=== PATIENT | male | born 1975 | race African-American/Black ===

== ENCOUNTER 2018-01-27 12:14 | Emergency (ER) | payer BC ==
[~2018-01-27] VITALS: Ht 180.3 cm; Wt 127.0 kg
[~2018-01-27 12:14] MED LIST: ALBU8.5H4
[2018-01-27 12:20] VITALS: BP 161/69
== END 2018-01-27 12:41 | disposition home or self-care (01) ==
LOC: ER 12:18
DX: J45.901 Unspecified asthma with (acute) exacerbation (principal); Z60.2 Problems related to living alone; Z98.890 Other specified postprocedural states
CPT/HCPCS: A4606; Z7610

== ENCOUNTER 2018-02-03 15:48 | Emergency (ER) | payer BC ==
[~2018-02-03] VITALS: Ht 177.8 cm; Wt 127.0 kg
[2018-02-03 15:48] VITALS: BP 124/90
== END 2018-02-03 16:05 | disposition home or self-care (01) ==
LOC: ER 15:51
DX: J45.901 Unspecified asthma with (acute) exacerbation (principal); F17.200 Nicotine dependence, unspecified, uncomplicated; F12.10 Cannabis abuse, uncomplicated; Z98.890 Other specified postprocedural states; Z76.0 Encounter for issue of repeat prescription; Z60.2 Problems related to living alone
CPT/HCPCS: 99283; A4606; Z7610

== ENCOUNTER 2018-04-05 10:36 | Emergency (ER) | payer BC ==
[~2018-04-05] VITALS: Ht 177.8 cm; Wt 127.0 kg
[2018-04-05 10:38] VITALS: BP 129/52
[2018-04-05] MEDS ORDERED: LIDOCAINE HCL/PF 1% 30 ML VIAL TP ONE (11:00)
[2018-04-05] MEDS ORDERED: LIDOCAINE HCL/PF 1% 30 ML SDV ONE (11:02)
== END 2018-04-05 11:47 | disposition home or self-care (01) ==
LOC: ER 10:37
DX: S63.275A Dislocation of unspecified interphalangeal joint of left ring finger, initial encounter (principal); Z98.890 Other specified postprocedural states; F17.200 Nicotine dependence, unspecified, uncomplicated; Z60.2 Problems related to living alone; W01.0XXA Fall on same level from slipping, tripping and stumbling without subsequent striking against object, initial encounter; Y93.89 Activity, other specified; Y92.89 Other specified places as the place of occurrence of the external cause; Y99.8 Other external cause status
CPT/HCPCS: 73140-TC; A4606; J3490; Z7610

== ENCOUNTER 2019-12-30 20:57 | Emergency (ER) | payer BC, OTHER ==
[~2019-12-30] VITALS: Ht 180.3 cm; Wt 122.5 kg
--- NOTE | 2019-12-30 21:11 | NUR ---
CALLED TO TRIAGE NO ANSWER, NOT IN WAITING ROOM
--- NOTE | 2019-12-30 21:37 | NUR ---
BIBS. L CHEST PAIN. S/P GERD DX. TROUBLE BRAETHING X 1 WEEK; PT AAOX4, -SOB, -CP, VSS. NAD NOTED. PENDIND ER PROVIDER EKTA
[2019-12-30] MEDS ORDERED: MAG HYDROX/AL HYDROX/SIMETH 30 ML UDC ONE (21:59)
[2019-12-30] MEDS ORDERED: LIDOCAINE VISCOUS 2% UD 15 ML UDC ONE (21:59)
[2019-12-30] MEDS ORDERED: MAG HYDROX/AL HYDROX/SIMETH 30 ML UDC PO ONE (22:00)
[2019-12-30] MEDS ORDERED: LIDOCAINE VISCOUS 2% UD 15 ML UDC MM ONE (22:00)
[2019-12-30] MEDS ORDERED: TAMS-12 GT (22:15)
[2019-12-30] MEDS ORDERED: DONE5TAB34 GT (22:15)
[2019-12-30] MEDS ORDERED: FERR325T23 GT (22:15)
[2019-12-30] MEDS ORDERED: VENL75CA56 GT (22:15)
[2019-12-30] MEDS ORDERED: LEVO500T75 GT (22:15)
[2019-12-30] MEDS ORDERED: FINA5TAB11 GT (22:15)
[2019-12-30] MEDS ORDERED: CARV3.122 GT (22:15)
[2019-12-30] MEDS ORDERED: INSU100V7 SQ (22:15)
[2019-12-30] MEDS ORDERED: APIX2.5T GT (22:15)
[2019-12-30] MEDS ORDERED: ATOR10TA GT (22:15)
[2019-12-30] MEDS ORDERED: SACU1TAB GT (22:15)
[2019-12-30] MEDS ORDERED: CLOP75TA15 GT (22:15)
[2019-12-30] MEDS ORDERED: AMIO200T4 GT (22:15)
[2019-12-30] MEDS ORDERED: FAMO20TA8 GT (22:15)
[2019-12-30] MEDS ORDERED: CALC500T51 GT (22:15)
[2019-12-30] MEDS ORDERED: NYST5ORA GT (22:15)
[2019-12-30] MEDS ORDERED: INSU100V39 SQ (22:15)
[2019-12-30] MEDS ORDERED: DOCU100C36 GT (22:15)
[2019-12-30] MEDS ORDERED: CEPH-570 GT (22:15)
[2019-12-30 22:24] LABS: EOSINOPHILS % (AUTO) 3.2 % (0.0-6.0); HEMATOCRIT 45 % (39-51); HEMOGLOBIN 14.6 g/dL (13.5-17.5); LYMPHOCYTES # (AUTO) 1.7 /CMM (0.8-4.8); LYMPHOCYTES % (AUTO) 16.7 % (20.0-44.0); MEAN CORPUSCULAR HGB CONC 32 g/dl (31.0-36.0); MEAN CORPUSCULAR VOLUME 79 fL (80-96); MONOCYTES # (AUTO) 0.5 /CMM (0.1-1.30); MONOCYTES % (AUTO) 4.7 % (2.0-12.0); NEUTROPHILS # (AUTO) 7.8 /CMM (1.8-8.9); NEUTROPHILS % (AUTO) 75.4 % (43.0-81.0); PLATELET COUNT (AUTO) 207 /CMM (150-450); RED BLOOD CELL COUNT(AUTO) 5.71 MIL/uL (4.5-6.0); WHITE BLOOD COUNT (AUTO) 10.4 K/uL (4.3-11.0)
[2019-12-30 22:30] VITALS: BP 159/90
[2019-12-30 22:30] LABS: CALCIUM, SERUM 9.2 mg/dL (8.5-10.1); CARBON DIOXIDE 27 mmol/L (21-32); CHLORIDE 102 mmol/L (98-107); CREATININE 1.1 mg/dL (0.6-1.3); GLUCOSE 88 mg/dL (74-106); POTASSIUM 3.7 mmol/L (3.5-5.1); SODIUM SERUM 137 mmol/L (136-145); UREA NITROGEN, BLOOD 12 mg/dL (7-18)
[2019-12-30 22:37] LABS: ALANINE AMINOTRANSFERASE 33 U/L (12-78); ALKALINE PHOSPHATASE 59 U/L (46-116); ASPARTATE AMINOTRANSFERASE 19 U/L (15-37); BILIRUBIN,DIRECT 0.2 mg/dL (0.0-0.2); BILIRUBIN,TOTAL 0.7 mg/dL (0.2-1.0); TOTAL PROTEIN, SERUM 7.5 g/dL (6.4-8.2)
--- NOTE | 2019-12-30 23:31 | NUR ---
Patient discharged to home in stable condition. Written and verbal after care instructions given. Patient verbalizes understanding of instruction. IV removed. Catheter intact and site benign. Pressure and 4x4 applied to site. No bleeding noted.
== END 2019-12-30 23:34 | disposition home or self-care (01) ==
LOC: ER 21:01
DX: K21.9 Gastro-esophageal reflux disease without esophagitis (principal); J45.909 Unspecified asthma, uncomplicated; M54.9 Dorsalgia, unspecified; Z98.890 Other specified postprocedural states; Z79.4 Long term (current) use of insulin; Z79.899 Other long term (current) drug therapy
CPT/HCPCS: 36415; 71045-TC; 80048-TC; 80076-TC; 83690-TC; 84484-TC; 85025-TC

== ENCOUNTER 2020-01-04 16:52 | Emergency (ER) | payer OTHER ==
[~2020-01-04] VITALS: Ht 177.8 cm; Wt 120.2 kg
[~2020-01-04 16:52] MED LIST changes: +AMIO200T4 GT; +APIX2.5T GT; +ATOR10TA GT; +CALC500T51 GT; +CARV3.122 GT; +CEPH-570 GT; +CLOP75TA15 GT; +DOCU100C36 GT; +DONE5TAB34 GT; +FAMO20TA8 GT; +FERR325T23 GT; +FINA5TAB11 GT; +INSU100V39 SQ; +INSU100V7 SQ; +LEVO500T75 GT; +NYST5ORA GT; +SACU1TAB GT; +TAMS-12 GT; +VENL75CA56 GT
--- NOTE | 2020-01-04 17:15 | NUR ---
pt rec'd to er c/o gi poss hiatal hernia was seen here a week ago vss ekg done AWAITING EVALUATION BY ER PROVIDER.
--- NOTE | 2020-01-04 18:15 | NUR ---
pt miriam drawn sent to lab
--- NOTE | 2020-01-04 18:45 | NUR ---
p t stated feeling angry when he was in the lobby . rn tried to hekp with care . pending labs and chest xray
[2020-01-04 18:47] LABS: BASOPHILS % (AUTO) 0.6 % (0.0-2.0); EOSINOPHILS % (AUTO) 3.5 % (0.0-6.0); HEMATOCRIT 46 % (39-51); HEMOGLOBIN 14.4 g/dL (13.5-17.5); LYMPHOCYTES % (AUTO) 28.5 % (20.0-44.0); MEAN CORPUSCULAR HGB CONC 32 g/dl (31.0-36.0); MEAN CORPUSCULAR VOLUME 80 fL (80-96); MONOCYTES # (AUTO) 0.5 /CMM (0.1-1.30); MONOCYTES % (AUTO) 7.3 % (2.0-12.0); NEUTROPHILS # (AUTO) 4.3 /CMM (1.8-8.9); NEUTROPHILS % (AUTO) 60.1 % (43.0-81.0); PLATELET COUNT (AUTO) 198 /CMM (150-450); RED BLOOD CELL COUNT(AUTO) 5.72 MIL/uL (4.5-6.0); WHITE BLOOD COUNT (AUTO) 7.2 K/uL (4.3-11.0)
[2020-01-04 18:55] LABS: CALCIUM, SERUM 9.3 mg/dL (8.5-10.1); CARBON DIOXIDE 30 mmol/L (21-32); CHLORIDE 105 mmol/L (98-107); CREATININE 1.1 mg/dL (0.6-1.3); GLUCOSE 91 mg/dL (74-106); POTASSIUM 4.2 mmol/L (3.5-5.1); SODIUM SERUM 142 mmol/L (136-145); UREA NITROGEN, BLOOD 12 mg/dL (7-18)
[2020-01-04 19:01] LABS: ALANINE AMINOTRANSFERASE 33 U/L (12-78); ALBUMIN 4.1 g/dL (3.4-5.0); ALKALINE PHOSPHATASE 54 U/L (46-116); ASPARTATE AMINOTRANSFERASE 17 U/L (15-37); BILIRUBIN,DIRECT 0.1 mg/dL (0.0-0.2); BILIRUBIN,TOTAL 0.7 mg/dL (0.2-1.0); TOTAL PROTEIN, SERUM 7.5 g/dL (6.4-8.2)
--- NOTE | 2020-01-04 19:46 | NUR ---
PT ISSUED WITH [facility] TO BRING HOME PER MD ORDER
--- NOTE | 2020-01-04 19:47 | NUR ---
Patient discharged to home in stable condition. RX and Written and verbal after care instructions given. Patient verbalizes understanding of instruction.
[2020-01-04 19:48] VITALS: BP 148/97
== END 2020-01-04 19:48 | disposition home or self-care (01) ==
LOC: ER 16:56
DX: R07.89 Other chest pain (principal); G89.29 Other chronic pain; M54.9 Dorsalgia, unspecified; R42 Dizziness and giddiness; K21.9 Gastro-esophageal reflux disease without esophagitis; J45.909 Unspecified asthma, uncomplicated; Z79.4 Long term (current) use of insulin
CPT/HCPCS: 36415; 71045-TC; 80048-TC; 80076-TC; 84484-TC; 85025-TC

== ENCOUNTER 2020-08-12 12:09 | Emergency (ER) | payer OTHER ==
[~2020-08-12] VITALS: Ht 180.3 cm; Wt 120.2 kg
[~2020-08-12 12:09] MED LIST changes: -CALC500T51 GT; +CALC500T53 GT; +LEVO500T23 GT; -LEVO500T75 GT
--- NOTE | 2020-08-12 12:12 | NUR ---
aaox3, BIB self c/o midsternal chest pain and SOB, patient states that he was admitted at [facility] for PE 1 week ago. He was given heparin and currently on Eliquis. RR is even and unlabored with nad noted. Skin is warm and dry. Awaiting md for eval.
--- NOTE | 2020-08-12 12:23 | NUR ---
radiology at bedside for chest xray.
--- NOTE | 2020-08-12 12:33 | NUR ---
Dr Florian at BS for eval.
--- NOTE | 2020-08-12 12:45 | NUR ---
refusing piv start. ermd aware.
[2020-08-12 13:15] LABS: BASOPHILS # (AUTO) 0.1 /CMM (0.0-0.2); BASOPHILS % (AUTO) 0.8 % (0.0-2.0); HEMATOCRIT 39 % (39-51); HEMOGLOBIN 12.8 g/dL (13.5-17.5); LYMPHOCYTES # (AUTO) 1.6 /CMM (0.8-4.8); LYMPHOCYTES % (AUTO) 23.8 % (20.0-44.0); MEAN CORPUSCULAR HGB CONC 33 g/dl (31.0-36.0); MEAN CORPUSCULAR VOLUME 80 fL (80-96); MONOCYTES # (AUTO) 0.7 /CMM (0.1-1.30); MONOCYTES % (AUTO) 9.6 % (2.0-12.0); NEUTROPHILS # (AUTO) 4.3 /CMM (1.8-8.9); NEUTROPHILS % (AUTO) 62.8 % (43.0-81.0); PLATELET COUNT (AUTO) 232 /CMM (150-450); RED BLOOD CELL COUNT(AUTO) 4.92 MIL/uL (4.5-6.0); WHITE BLOOD COUNT (AUTO) 6.9 K/uL (4.3-11.0)
[2020-08-12 13:19] LABS: CALCIUM, SERUM 9.1 mg/dL (8.5-10.1); CARBON DIOXIDE 26 mmol/L (21-32); CHLORIDE 104 mmol/L (98-107); GLUCOSE 119 mg/dL (74-106); POTASSIUM 3.6 mmol/L (3.5-5.1); SODIUM SERUM 138 mmol/L (136-145); UREA NITROGEN, BLOOD 15 mg/dL (7-18)
--- NOTE | 2020-08-12 16:04 | NUR ---
Patient discharged to home in stable condition. Written and verbal after care instructions given. Patient verbalizes understanding of instruction.
[2020-08-12 16:06] VITALS: BP 132/77
== END 2020-08-12 16:07 | disposition home or self-care (01) ==
LOC: ER 12:12
DX: R07.89 Other chest pain (principal); J45.909 Unspecified asthma, uncomplicated; K21.9 Gastro-esophageal reflux disease without esophagitis; M54.9 Dorsalgia, unspecified; Z86.711 Personal history of pulmonary embolism; Z98.890 Other specified postprocedural states; Z79.4 Long term (current) use of insulin; Z79.899 Other long term (current) drug therapy
CPT/HCPCS: 36415; 71045-TC; 80048-TC; 84484-TC; 85025-TC; 93307-TC

== ENCOUNTER 2021-01-06 20:19 | Emergency (ER) | payer OTHER ==
[~2021-01-06] VITALS: Ht 177.8 cm; Wt 129.7 kg
[~2021-01-06 20:19] MED LIST changes: -AMIO200T4 GT; +AMIO200T5 GT
--- NOTE | 2021-01-06 20:45 | NUR ---
JACEK C/O MILD SOB X1 DAY. , PT AAOX4, PT TO BED 3, PLACED ON MONITOR, NOT IN ANY DISTRESS, VSS, PENDING ER PROVIDER EKTA
[2021-01-06] MEDS ORDERED: ASPIRIN 81 MG TAB.CHEW PO ONE (21:00)
[2021-01-06] MEDS ORDERED: ASPIRIN 81 MG TAB.CHEW ONE (21:00)
[2021-01-06 21:36] LABS: BASOPHILS % (AUTO) 0.5 % (0.0-2.0); EOSINOPHILS % (AUTO) 1.5 % (0.0-6.0); HEMATOCRIT 43 % (39-51); HEMOGLOBIN 13.6 g/dL (13.5-17.5); LYMPHOCYTES # (AUTO) 2.1 /CMM (0.8-4.8); MEAN CORPUSCULAR HGB CONC 32 g/dl (31.0-36.0); MEAN CORPUSCULAR VOLUME 77 fL (80-96); MONOCYTES # (AUTO) 0.5 /CMM (0.1-1.30); NEUTROPHILS # (AUTO) 4.9 /CMM (1.8-8.9); PLATELET COUNT (AUTO) 239 /CMM (150-450); RED BLOOD CELL COUNT(AUTO) 5.54 MIL/uL (4.5-6.0); WHITE BLOOD COUNT (AUTO) 7.7 K/uL (4.3-11.0)
[2021-01-06 22:17] LABS: CARBON DIOXIDE 26 mmol/L (21-32); CHLORIDE 102 mmol/L (98-107); CREATININE 1.4 mg/dL (0.6-1.3); GLUCOSE 95 mg/dL (74-106); POTASSIUM 3.5 mmol/L (3.5-5.1); SODIUM SERUM 139 mmol/L (136-145); UREA NITROGEN, BLOOD 15 mg/dL (7-18)
[2021-01-06 22:24] LABS: CALCIUM, SERUM 8.6 mg/dL (8.5-10.1)
[2021-01-06 22:40] VITALS: BP 142/95
--- NOTE | 2021-01-06 22:40 | NUR ---
Patient discharged to home in stable condition. Written and verbal after care instructions given. Patient verbalizes understanding of instruction.
== END 2021-01-06 22:40 | disposition home or self-care (01) ==
LOC: ER 20:25
DX: R07.89 Other chest pain (principal); K21.9 Gastro-esophageal reflux disease without esophagitis; J45.909 Unspecified asthma, uncomplicated; Z98.890 Other specified postprocedural states; Z86.711 Personal history of pulmonary embolism; Z79.899 Other long term (current) drug therapy
CPT/HCPCS: 36415; 71045-TC; 80048-TC; 84484-TC; 85025-TC; 85378-TC

== ENCOUNTER 2021-06-30 19:30 | Emergency (ER) | payer OTHER ==
[~2021-06-30] VITALS: Ht 175.3 cm; Wt 127.0 kg
--- NOTE | 2021-06-30 19:30 | NUR ---
C/O "COUGHING UP BLOOD CLOTS" X 1 . C/O CHEST PAIN. PT A/OX4. TOLERATING R/A
[2021-06-30] MEDS ORDERED: ACETAMINOPHEN ES 500 MG TABLET ONE (20:22)
[2021-06-30] MEDS ORDERED: ACETAMINOPHEN ES 500 MG TABLET PO ONE (20:30)
[2021-06-30] MEDS ORDERED: IV NS 0.9% 500 ML BAG IV ONE (20:30)
[2021-06-30 20:49] LABS: BASOPHILS # (AUTO) 0.1 K/uL (0.0-0.2); BASOPHILS % (AUTO) 0.7 % (0.0-2.0); EOSINOPHILS % (AUTO) 5.1 % (0.0-6.0); HEMATOCRIT 42 % (39-51); HEMOGLOBIN 13.7 g/dL (13.5-17.5); LYMPHOCYTES # (AUTO) 2.2 K/uL (0.8-4.8); LYMPHOCYTES % (AUTO) 29.2 % (20.0-44.0); MEAN CORPUSCULAR HGB CONC 33 g/dl (31.0-36.0); MEAN CORPUSCULAR VOLUME 77 fL (80-96); MONOCYTES # (AUTO) 0.5 K/uL (0.1-1.30); MONOCYTES % (AUTO) 7.3 % (2.0-12.0); NEUTROPHILS # (AUTO) 4.4 K/uL (1.8-8.9); NEUTROPHILS % (AUTO) 57.7 % (43.0-81.0); PLATELET COUNT (AUTO) 228 K/uL (150-450); RED BLOOD CELL COUNT(AUTO) 5.48 MIL/uL (4.5-6.0); WHITE BLOOD COUNT (AUTO) 7.6 K/uL (4.3-11.0)
--- NOTE | 2021-06-30 20:49 | NUR ---
BLOOD WORK DRAWN. INITIATED RAC #20G
--- NOTE | 2021-06-30 20:53 | NUR ---
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
[2021-06-30 21:17] LABS: ALANINE AMINOTRANSFERASE 31 U/L (12-78); ALBUMIN 3.8 g/dL (3.4-5.0); ALKALINE PHOSPHATASE 54 U/L (46-116); ASPARTATE AMINOTRANSFERASE 19 U/L (15-37); BILIRUBIN,DIRECT 0.1 mg/dL (0.0-0.2); BILIRUBIN,TOTAL 0.3 mg/dL (0.2-1.0); CALCIUM, SERUM 8.7 mg/dL (8.5-10.1); CARBON DIOXIDE 29 mmol/L (21-32); CHLORIDE 103 mmol/L (98-107); GLUCOSE 91 mg/dL (74-106); SODIUM SERUM 140 mmol/L (136-145); TOTAL PROTEIN, SERUM 7.5 g/dL (6.4-8.2); UREA NITROGEN, BLOOD 12 mg/dL (7-18)
[2021-06-30 21:23] LABS: D-DIMER 0.46 mg/L(FEU (0.17-0.50)
--- NOTE | 2021-06-30 22:46 | NUR ---
DC IV W NO ACTIVE BLEEDING
--- NOTE | 2021-06-30 22:46 | NUR ---
Patient discharged to home in stable condition. Written and verbal after care instructions given. Patient verbalizes understanding of instruction. ambulatory with a steady gait. PT A/O X4
[2021-06-30 22:48] VITALS: BP 128/85
== END 2021-06-30 22:48 | disposition home or self-care (01) ==
LOC: ER 19:33
DX: R04.2 Hemoptysis (principal); R42 Dizziness and giddiness; I10 Essential (primary) hypertension; J45.909 Unspecified asthma, uncomplicated; K21.9 Gastro-esophageal reflux disease without esophagitis; F17.200 Nicotine dependence, unspecified, uncomplicated; M54.9 Dorsalgia, unspecified; Z98.890 Other specified postprocedural states; Z79.4 Long term (current) use of insulin; Z79.899 Other long term (current) drug therapy
CPT/HCPCS: 36415; 71045-TC; 80048-TC; 80076-TC; 83880; 84484-TC; 85025-TC; 85378-TC; 85730-TC